=== PATIENT | male | born 1995 | race African-American/Black ===

== ENCOUNTER 2016-11-06 00:22 | Emergency (ER) | payer MEDICARE, MEDICAID ==
[~2016-11-06] VITALS: Ht 172.7 cm; Wt 72.0 kg
[2016-11-06 00:29] VITALS: BP 165/93
== END 2016-11-06 00:40 | disposition left against medical advice (07) ==
LOC: ER 00:23
DX: R44.0 Auditory hallucinations (principal); Z53.21 Procedure and treatment not carried out due to patient leaving prior to being seen by health care provider

== ENCOUNTER 2020-09-28 18:35 | Emergency (ER) | payer MEDICARE, MEDICAID ==
[~2020-09-28] VITALS: Ht 177.8 cm; Wt 91.0 kg
[2020-09-28] MEDS ORDERED: HALOPERIDOL LACTATE 5MG/ML VIAL IM STA (19:11)
[2020-09-28] MEDS ORDERED: LORAZEPAM 2MG/ML CPJ IV STA (19:11)
[2020-09-28] MEDS ORDERED: TETANUS, DIPHTHERIA, PERTUSSIS VAC/PF 0.5ML (>7YR OLD) IM ONE (19:15)
[2020-09-28 20:53] LABS: BASOPHILS % 0.5 % (0.0-2.0); EOSINOPHILS % 0.3 % (0.0-5.0); HEMATOCRIT. 40.7 % (42.0-52.0); HEMOGLOBIN. 13.4 g/dL (14.0-18.0); LYMPHOCYTES % 15.1 % (20.0-50.0); MEAN CORPUSCULAR HEMOGLOBIN 26.4 pg (28.0-32.0); MEAN CORPUSCULAR VOLUME 80.3 fL (80.0-94.0); MEAN PLATELET VOLUME 8.6 fl (7.4-10.4); MONOCYTES % 9.5 % (2.0-8.0); NEUTROPHILS % 74.6 % (40.0-76.0); PLATELET 255 x1000/uL (130-400); RED BLOOD CELL COUNT 5.07 mill/uL (4.7-6.1); RED CELL DISTRIBUTION WIDTH 14.7 % (11.6-14.6)
[2020-09-28 20:58] LABS: CHLORIDE 105 mEq/L (98-107)
[2020-09-28 21:02] LABS: ETHANOL BLOOD < 10 mg/dL
[2020-09-28] MEDS ORDERED: LIDOCAINE HCL/EPINEPHRINE 1%-EPI 1:100,000 20 ML VIAL INFIL ONE (22:30)
[2020-09-28] MEDS ORDERED: LIDOCAINE HCL/EPINEPHRINE 1%-EPI 1:100,000 50 ML VIAL INFIL SCH (22:36)
[2020-09-29] MEDS: HALOPERIDOL LACTATE 5MG/ML VIAL IM SCH (04:50)
[2020-09-29 05:46] LABS: CLARITY URINE CLEAR (CLEAR); COLOR URINE DARK YELLOW (YELLOW); KETONES URINE 3+ (NEGATIVE); LEUKOCYTE ESTERASE URINE TRACE (NEGATIVE); NITRITE URINE NEGATIVE (NEGATIVE); OCCULT BLOOD URINE NEGATIVE (NEGATIVE); PH URINE 5.5 (4.5-8.0); PROTEIN URINE TRACE (NEGATIVE); SPECIFIC GRAVITY URINE 1.037 (1.005-1.030)
[2020-09-29 05:58] LABS: *BARBITURATES SCREEN URINE NEGATIVE (NEGATIVE)
[2020-09-29 05:59] LABS: *AMPHETAMINES SCREEN URINE NEGATIVE (NEGATIVE); *BENZODIAZEPINES SCREEN URINE NEGATIVE (NEGATIVE); *COCAINE SCREEN URINE NEGATIVE (NEGATIVE); CANNABINOID URINE SCREEN PRESUMTIVE POSITIVE (NEGATIVE); METHADONE URINE SCREEN NEGATIVE (NEGATIVE); OPIATES URINE SCREEN NEGATIVE (NEGATIVE); PHENCYCLIDINE URINE SCREEN NEGATIVE (NEGATIVE)
[2020-09-29] MEDS ORDERED: OLANZAPINE 10 MG/VIAL IM ONE (08:00)
[2020-09-29] MEDS ORDERED: LORAZEPAM 2MG/ML CPJ IM ONE (08:00)
[2020-09-29] MEDS ORDERED: LORAZEPAM 1MG TABLET PO ONE (19:00)
[2020-09-29] MEDS ORDERED: HALOPERIDOL 5MG TABLET PO ONE (19:00)
[2020-09-29] MEDS ORDERED: ZIPRASIDONE HCL 40MG CAPSULE PO ONE (22:45)
[2020-09-30] MEDS ORDERED: NICOTINE 7MG PATCH TD ONE (08:30)
[2020-09-30] MEDS: ZIPRASIDONE HCL 40MG CAPSULE PO SCH ×2 (09:37→18:45)
[2020-09-30 19:50] VITALS: BP 130/92
== END 2020-09-30 20:05 ==
LOC: ER 18:35
DX: S61.412A Laceration without foreign body of left hand, initial encounter (principal); S31.31XA Laceration without foreign body of scrotum and testes, initial encounter; F23 Brief psychotic disorder; F31.9 Bipolar disorder, unspecified; X58.XXXA Exposure to other specified factors, initial encounter; Y93.9 Activity, unspecified; Y92.9 Unspecified place or not applicable; Z20.822 Contact with and (suspected) exposure to COVID-19
CPT/HCPCS: 36415; 76870; 80053; 80320; 82962; 85025; 90471; 90715; 93005; 93976; 96372; 96374; 99285; J1630; J2060; J3490; G0480

== ENCOUNTER 2020-12-18 21:30 | Emergency (ER) | payer MEDICARE, OTHER, MEDICAID ==
[~2020-12-18] VITALS: Ht 175.3 cm; Wt 84.0 kg
[2020-12-18 22:15] VITALS: BP 128/77
== END 2020-12-18 23:50 | disposition home or self-care (01) ==
LOC: ER 21:30
DX: Z04.89 Encounter for examination and observation for other specified reasons (principal); Z59.0 Homelessness
CPT/HCPCS: 99281

== ENCOUNTER 2021-08-26 12:18 | Emergency (ER) | payer MEDICARE, MEDICAID ==
[~2021-08-26] VITALS: Ht 172.7 cm; Wt 102.0 kg
[2021-08-26] MEDS ORDERED: IBUP-2028 MT (12:38)
[2021-08-26] MEDS ORDERED: CHLO473M2 MT (12:38)
[2021-08-26] MEDS ORDERED: AMOX-424 MT (12:38)
[2021-08-26] MEDS ORDERED: ACET-2708 MT (12:38)
[2021-08-26 13:01] VITALS: BP 127/85
== END 2021-08-26 13:01 | disposition home or self-care (01) ==
LOC: ER 12:32
DX: K08.89 Other specified disorders of teeth and supporting structures (principal); Z72.0 Tobacco use; K02.9 Dental caries, unspecified; Z79.899 Other long term (current) drug therapy
CPT/HCPCS: 99283